=== PATIENT | male | born 1965 | race Caucasian/White ===

== ENCOUNTER 2022-09-18 18:13 | Emergency (ER) | payer OTHER, SELFPAY ==
[2022-09-18 18:29] VITALS: BP 168/82; PULSE 98; RESP 20; TEMP 36.2; O2SAT 100
--- NOTE | 2022-09-18 20:20 | ED.GENADULT ---
HPI - General Adult General Chief complaint: Epistaxis Stated complaint: Bloody Nose Time Seen by Provider: 09/18/22 19:04 History of Present Illness HPI narrative: This is a 57-year-old gentleman presenting ED with chief complaint of epistaxis. Patient notes that he had a bloody nose 645 this morning. He is able to control with direct pressure but he has noticed it has been oozing throughout the day. He continues to keep trying to blow his nose to make it stop. He keeps in the passage of clots. He is not on blood thinners, does not have shortness of breath chest pain or fatigue. Related Data Home Medications Medication Instructions Recorded Confirmed aspirin 81 mg tablet,delayed 81 mg PO DAILY 06/25/19 08/17/22 release calcium carbonate 600 mg calcium 600 mg PO DAILY 08/17/22 08/17/22 (1,500 mg) tablet (Calcium) insulin glargine 100 unit/mL (3 See Rx Instructions .Route .COMPLEX 08/17/22 08/17/22 mL) subcutaneous pen (Lantus Solostar U-100 Insulin) magnesium 250 mg tablet 250 mg PO DAILY 08/17/22 08/17/22 melatonin 10 mg capsule 10 mg PO QHS 08/17/22 08/17/22 Allergies Allergy/AdvReac Type Severity Reaction Status Date / Time cephalexin Allergy Unknown tightness Verified 09/18/22 18:33 in chest exenatide [Byetta] Allergy Unknown Unknown Verified 09/18/22 18:33 Penicillins Allergy Unknown Unknown Verified 09/18/22 18:33 [facility] Past Medical History Medical History Depression Essential (primary) hypertension History of calculus of gallbladder care home (current) use of insulin Mixed hyperlipidemia Orbital fracture 1971 Type 2 diabetes mellitus with hyperosmolarity without nonketotic hyperglycemic-hyperosmolar coma ([facility]) Surgical History Surgical History H/O lumbar discectomy 2011 Family History Family History Father Diabetes mellitus Grandparent Diabetes mellitus Mother Diabetes mellitus Other Cerebrovascular accident Family history of Alzheimer's disease Family history of cardiovascular disease Family history of congestive heart failure Hypertension Social History Social History Social History: patient is a current smoker, has been smoking since he was 29 years old. Smoking packs per day: 1 Smoking cigarettes per day: 20.0 Smoking status: Current every day smoker Tobacco type: cigarettes Alcohol intake: current Exam Narrative: APPEARANCE: No apparent distress. Head: Patient has dry blood in the right Nare, no obvious excoriation EYES: EOMI, NOSE: Atraumatic NECK: Trachea midline RESPIRATORY: No increased rate of breathing CARDIOVASCULAR: RRR, ABDOMINAL: Non-distended MUSCULOSKELETAl: No obvious deformities NEURO: Alert. Moving 4/4 extremities SKIN:: Warm, dry. Normal color PSYCHIATRIC: Normal affect Course Vital Signs Vital signs: Vital Signs Temperature 97.1 F L 09/18/22 18:29 Pulse Rate 98 09/18/22 18:29 Respiratory Rate 20 09/18/22 18:29 Blood Pressure 168/82 H 09/18/22 18:29 Pulse Oximetry 100 09/18/22 18:29 Oxygen Delivery Room Air 09/18/22 18:29 Temperature 97.1 F L 09/18/22 18:29 Pulse Rate 85 09/18/22 21:54 Respiratory Rate 17 09/18/22 21:54 Blood Pressure 150/82 H 09/18/22 21:54 Pulse Oximetry 96 09/18/22 21:54 Oxygen Delivery Room Air 09/18/22 18:29 Medical Decision Making [facility] Narrative Medical decision making narrative: -Presentation: 57-year-old male presenting with epistaxis -DDX includes but is not limited to: anterior bleed, posterior bleed -Co-morbidities complicating care: hypertension diabetes high cholesterol -Social determinants of health: patient is employed as a labor, 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
[2022-09-18] MEDS: OXYMETAZOLINE HCL 0.05% NAS 15 ML BTL (*BKC) 1 SPRAY (20:27)
--- NOTE | 2022-09-18 21:45 | PC.NURSE ---
Patient continues to bleed around the rhino tampon. Provider made aware and clamp placed on nose.
[2022-09-18 21:54] VITALS: BP 150/82; PULSE 85; RESP 17; O2SAT 96
== END 2022-09-18 22:44 | disposition home or self-care (01) ==
PROVIDERS: Emergency Provider Emergency Medicine; PCP Family Medicine
DX: R04.0 Epistaxis (principal); I10 Essential (primary) hypertension; E78.2 Mixed hyperlipidemia; E11.00 Type 2 diabetes mellitus with hyperosmolarity without nonketotic hyperglycemic-hyperosmolar coma (NKHHC); F17.210 Nicotine dependence, cigarettes, uncomplicated; Z79.4 Long term (current) use of insulin; Z79.82 Long term (current) use of aspirin; Z79.84 Long term (current) use of oral hypoglycemic drugs
CPT/HCPCS: 30901; 99283; A9270

== ENCOUNTER 2023-07-12 09:36 | Outpatient (CLI) | payer OTHER, SELFPAY ==
--- NOTE | ~2023-07-12 | NM_ITS ---
EXAMINATION: NM erick stress w perfusion DATE: 07/12/2023 11:33 INDICATION: Syncope and collapse TECHNIQUE: Rest images were obtained following intravenous administration of 9 mCi Tc99m tetrofosmin (Myoview). The patient was infused intravenously with Lexiscan (Regadenoson). Then, 29.1 mCi Tc99m te trofosmin (Myoview) was administered intravenously, and stress images were obtained. Data was reconst ructed into short axis and horizontal and vertical long axis SPECT images. Gated SPECT images were al so obtained. COMPARISON: None. FINDINGS: There is no definite reversible or fixed perfusion abnormality to suggest ischemia or infar ction. There is normal left ventricular chamber size, wall motion and ejection fraction. Left ventr icular ejection fraction measures 67%. IMPRESSION: 1. Normal myocardial perfusion at rest and during stress. 2. Left ventricular ejection fraction measuring 67%. Reviewed, dictated and finalized at location A. PING ASSOCIATE
--- NOTE | 2023-07-12 10:17 | EST_ITS ---
Patient Info Name: Francois Beasley Age: 58 years : 1965 Gender: Male Ht: 70 in Wt: 192 lbs BSA: 2.09 m2 HR: 81 bpm BP: 130 / 74 mmHg Heart Rhythm: Sinus Rhythm Exam Date: 07/12/2023 10:31 AM Exam Location: Echo Lab Patient Status: Outpatient Admit Date: 07/12/2023 Staff Ordering Physician: Liliana Pascal MD Attending Provider: Liliana Pascal MD Exercise Technologist: Agnes Vee CT Exercise Physician: Ramon Madison DO Exam Type: CA stress erick w NM Study Info Indications R55 - Syncope and collapse A regadenoson stress test was performed. Summary 1. 1. Negative lexiscan stress test for ischemic ST changes by ECG criteria. 2. 2. Baseline hypertension. 3. 3. Nuclear scan to follow and will be reported separately. Please correlate with it. 4. 4. Patient informed of the above results. Protocol: Lexiscan Stress ECG Details Stage: REST Duration (min): 1 min : 2 sec HR (bpm): 78 SBP (mmHg): 150 DBP (mmHg): 74 Stage: REST Duration (min): 14 min : 46 sec HR (bpm): 82 SBP (mmHg): 150 DBP (mmHg): 74 Stage: STAGE 1 Duration (min): 1 min : 0 sec HR (bpm): 76 SBP (mmHg): 137 DBP (mmHg): 83 Stage: RECOVERY Duration (min): 1 min : 0 sec HR (bpm): 98 SBP (mmHg): 137 DBP (mmHg): 83 Stage: RECOVERY Duration (min): 2 min : 0 sec HR (bpm): 100 SBP (mmHg): 137 DBP (mmHg): 83 Stage: RECOVERY Duration (min): 2 min : 54 sec HR (bpm): 98 SBP (mmHg): 150 DBP (mmHg): 80 Rest HR: 82 bpm Peak HR: 100 bpm Rest Sys BP: 150 mmHg Peak Sys BP: 150 mmHg Max Pred HR: 164 bpm % Max Pred HR: 61 % Target HR: 139 bpm Max RPP: 15,000 bpm*mmHg Termination Reason: Completed protocol Cardiac Symptoms: Shortness of breath, Stomach discomfort Total Time: 1 min : 0 sec Rest Moser BP: 74 mmHg Peak Moser BP: 80 mmHg Total Dose: 0.4 mg Resting ECG Sinus rhythm, IRBBB. Stress ECG No ST changes. Arrhythmias None. Report Signatures
== END 2023-07-12 09:37 | disposition home or self-care (01) ==
PROVIDERS: PCP Family Medicine; Visit Provider Family Medicine
DX: R55 Syncope and collapse (principal); E11.29 Type 2 diabetes mellitus with other diabetic kidney complication; F17.200 Nicotine dependence, unspecified, uncomplicated; G82.22 Paraplegia, incomplete; R80.9 Proteinuria, unspecified; Z79.4 Long term (current) use of insulin
CPT/HCPCS: 78452; 93017; A9502; J2785

== ENCOUNTER 2023-08-18 07:12 | Outpatient (CLI) | payer OTHER, SELFPAY ==
--- NOTE | ~2023-08-18 | MR_ITS ---
MRI of the lumbar spine Clinical History: Disorder Technique: Axial T2-weighted images, and sagittal T1-weighted, T2-weighted, and STIR images were acqu ired. COMPARISON: 09/25/2018 Findings: There is stable posterior fusion hardware extending from L3 to L4, with bilateral rods and transpedicular screws in place. No acute fracture identified. There is 6 mm anterolisthesis of L5 ove r S1, similar to prior exam. There is reactive marrow signal changes about the T12-L1 disc space due to severe degenerative disc disease. No suspicious bone marrow signal abnormality identified. At L1-L2, there is mild disc bulge with mild facet arthropathy. No central canal stenosis or neural f oraminal narrowing. L2-L3, there is severe degenerative disc narrowing. There is diffuse disc bulge and severe facet arth ropathy, resulting in severe spinal canal stenosis/thecal sac compression. There is severe bilateral neural foraminal compromise, right worse than left. L3-L4, there is fusion across the disc space with posterior decompression. No spinal canal stenosis. There is probable moderate to severe bilateral neural foraminal narrowing. At L4-L5, there is moderate to advanced degenerative disc disease. There is diffuse disc bulge and sp ur paracentral disc protrusion, with advanced facet arthropathy. There is mild central canal stenosis . There is severe left neural foraminal narrowing, and moderate right neural foraminal narrowing. At L5-S1, there is diffuse disc bulge/uncovering with moderate facet arthropathy. No eunice central ca nal stenosis. There is severe bilateral neural foraminal narrowing. Paravertebral soft tissues are unremarkable. Impression: Severe degenerative spondylosis, especially at L2-L3. Severe neural foraminal narrowing at L4-L5 and L5-S1, as detailed above. 6 mm anterolisthesis of L5 over S1. Stable posterior fusion from L3 to L4 with posterior decompression at this level. Reviewed, dictated and finalized at location . NUE RESEARCH ANALYST Impression: Severe degenerative spondylosis, especially at L2-L3. Severe neural foraminal n arrowing at L4-L5 and L5-S1, as detailed above. 6 mm anterolisthesis of L5 over S1. Stable posterior fusion from L3 to L4 with posterior decompression at this leve l.
--- NOTE | ~2023-08-18 | MR_ITS ---
MRI of the cervical spine Clinical History: Balance disorder Technique: Axial T2-weighted and gradient images, and sagittal T1-weighted, T2-weighted, and STIR rom ges were acquired. Findings: There is straightening of the normal cervical lordosis, with minimal grade 1 retrolisthesis of C5 over C6. No fracture identified. No suspicious bone marrow signal abnormality seen. At C2-C3, there is minimal disc osteophyte complex, and minimal facet arthropathy. No central canal s tenosis or cord compression. Questionable minimal neural foraminal narrowing. At C3-C4, there is disc osteophyte complex, most prominent left paracentral to left foraminal region. There is mild canal stenosis without eunice cord compression. There is bilateral neural foraminal raheem rowing, left worse than right. At C4-C5, there is minimal disc osteophyte complex. No spinal canal stenosis or cord compression. Pro bable mild bilateral neural foraminal narrowing. At C5-C6, there is disc osteophyte complex resulting in mild canal stenosis and mild flattening the v entral cord. There is bilateral neural foraminal narrowing. At C6-C7, there is disc osteophyte complex resulting in mild canal stenosis and minimal flattening th e ventral cord. There is bilateral neural foraminal narrowing. No abnormal signal seen in the spinal cord. Paravertebral soft tissues are unremarkable. Impression: Moderate to advanced degenerative spondylosis, as detailed above. Minimal grade 1 retrolisthesis of C5 over C6. Reviewed, dictated and finalized at [facility]. CHOOL HEAD TEACHER Impression: Moderate to advanced degenerative spondylosis, as detailed above. Minimal grade 1 retrolisthesis of C5 over C6.
--- NOTE | ~2023-08-18 | MR_ITS ---
MRI of the thoracic spine Clinical History: Balance disorder Technique: Axial T2-weighted and gradient images, and sagittal T1-weighted, T2-weighted, and STIR rom ges were acquired. Findings: There is no fracture or subluxation of the thoracic spine. Vertebral bodies maintain normal height and alignment. There are mild reactive marrow signal changes due to underlying degenerative d isc disease, but no suspicious bone marrow signal abnormality seen. There is a disc protrusion at T7-T8, most prominent in the right paracentral region, minimally flatte lian the ventral cord. There are additional disc bulges/protrusions at T8-T9, T9-T10, and T10-T11, wi thout eunice canal stenosis or cord compression. There is diffuse disc bulge at T12-L1, probable sever e bilateral neural foraminal compromise, right worse than left. There are probable minimal disc bulge s at T5 and T6 and T6-T7. No abnormal signal seen in the spinal cord. Paravertebral soft tissues are unremarkable. Impression: Diffuse disc bulge at T12-L1 with severe bilateral neural foraminal narrowing, right worse than left. Disc protrusion at T7-T8, most prominent in the right paracentral region with minimal flattening of t he ventral cord. Additional minimal degenerative disc changes, as above. Reviewed, dictated and finalized at location M. OR ACCOUNTANT Impression: Diffuse disc bulge at T12-L1 with severe bilateral neural foraminal narrowing, right worse than left. Disc protrusion at T7-T8, most prominent in the right paracentral region with m inimal flattening of the ventral cord. Additional minimal degenerative disc changes, as above.
== END 2023-08-18 07:13 ==
PROVIDERS: PCP Family Medicine
DX: R26.89 Other abnormalities of gait and mobility (principal); M47.816 Spondylosis without myelopathy or radiculopathy, lumbar region; M51.36 Other intervertebral disc degeneration, lumbar region; M43.16 Spondylolisthesis, lumbar region
CPT/HCPCS: 72141; 72146; 72148

== ENCOUNTER 2023-08-19 10:03 | Outpatient (CLI) | payer OTHER, SELFPAY ==
--- NOTE | 2023-08-25 15:52 | WPDHOLTEREM ---
Holter/Event Monitor Holter/Event Monitor Date of procedure: 08/19/23 Holter/Event Procedure: 48 Hr Holter Monitor Indications: Syncope Conclusion: 1. 48 hour holter monitor on 08/19/23. 2. Underlying rhythm is sinus rhythm. HR range 50-119 bpm; average HR 81 bpm. 3. There are 6 premature supraventricular complexes. No supraventricular tachycardia. 4. There are 239 premature ventricular complexes, 60 ventricular couplets, 11 ventricular triplets and 3 ventricular bigeminy. No ventricular tachycardia. 5. No sinoatrial or atrioventricular blocks. No significant pauses greater than 2 seconds. 6. No symptoms available for correlation.
== END 2023-08-19 10:04 | disposition home or self-care (01) ==
LOC: ANHCARD 10:06
PROVIDERS: PCP Family Medicine; Visit Provider Family Medicine
DX: R55 Syncope and collapse (principal); E11.29 Type 2 diabetes mellitus with other diabetic kidney complication; R80.9 Proteinuria, unspecified; Z79.4 Long term (current) use of insulin; G82.22 Paraplegia, incomplete; F17.200 Nicotine dependence, unspecified, uncomplicated
CPT/HCPCS: 93225; 93226

== ENCOUNTER 2023-10-20 07:44 | Outpatient (CLI) | payer OTHER, SELFPAY ==
--- NOTE | 2023-10-20 07:51 | ECHO_ITS ---
Patient Info Name: Francois Beasley Age: 58 years : 1965 Gender: Male Ht: 70 in Wt: 198 lbs BSA: 2.12 m2 HR: 75 bpm BP: 128 / 74 mmHg Technical Quality: Good Exam Date: 10/20/2023 8:01 AM Exam Location: Echo Lab Patient Status: Outpatient Admit Date: 10/20/2023 Staff Ordering Physician: Ramon Madison DO [employer]lets Manager: Attending Provider: Ramon Madison DO Referring Physician: Los JARVIS; Exam Type: CA echo doppler color flow Study Info Indications R55 - Syncope and collapse Complete two-dimensional, color flow and Doppler transthoracic echocardiogram is performed. Summary 1. Complete two-dimensional, color flow and Doppler transthoracic echocardiogram is performed. 2. Left ventricular chamber dimension is normal. 3. Left ventricular systolic function is normal, estimated at 60-65%. 4. The left ventricular diastolic function is grade I diastolic dysfunction. 5. E/e' 10 is mildly elevated. 6. Right ventricular systolic function is mildly reduced and with abnormal TAPSE 1.5 cm. 7. Left atrial chamber dimension is mildly enlarged. 8. There is mild aortic valve sclerosis. 9. There is trace mitral valve regurgitation. Left Ventricle E/e' 10 is mildly elevated. Left ventricular chamber dimension is normal. Left ventricular systolic function is normal, estimated at 60-65%. The left ventricular diastolic function is grade I diastolic dysfunction. Right Ventricle Right ventricular systolic function is mildly reduced and with abnormal TAPSE 1.5 cm. Right ventricular chamber dimension is normal. Left Atria Left atrial chamber dimension is mildly enlarged. Right Atria Right atrial chamber dimension is normal. Aortic Valve The aortic valve is trileaflet. There is mild aortic valve sclerosis. There is no aortic valve stenosis. There is no aortic valve regurgitation. Pulmonic Valve There is no pulmonic regurgitation. Mitral Valve There is no mitral valve stenosis. There is trace mitral valve regurgitation. Tricuspid Valve There is no tricuspid valve regurgitation. Pericardium/Pleural There is no pericardial effusion. Inferior Vena Cava Normal inferior vena cava with >50% collapse upon inspiration consistent with normal right atrial pressure, 5 mmHg. Aorta The aortic root size at the sinus of Valsalva is normal. Left Ventricular Outflow Tract Name Value Normal LVOT 2D LVOT Diameter 2.1 cm LVOT Doppler LVOT Peak Gradient 4 mmHg LVOT Mean Gradient 2 mmHg LVOT VTI 22 cm LVOT VTI/AV VTI Ratio 0.6 LVOT Stroke Volume 74 ml LVOT CO 5.6 l/min LVOT CI 2.7 l/min/m2 Pulmonic Valve Name Value Normal PV Doppler PV Peak Gradient 5 mmHg Mitral Valve
== END 2023-10-20 07:45 | disposition home or self-care (01) ==
PROVIDERS: PCP Family Medicine; Visit Provider Internal Medicine Cardiovascular Disease
DX: R55 Syncope and collapse (principal); I35.0 Nonrheumatic aortic (valve) stenosis
CPT/HCPCS: 93306